=== PATIENT | female | born 1960 | race Caucasian/White ===

== ENCOUNTER → 2016-05-12 | Outpatient (CLI) | payer OTHER ==
[~2016-05-12] MED LIST: ACCUPRIL20 MG PO; BUFFERIN 325 M325 MG PO; CALCIUM + VITA1 EACH PO; CLARITIN10 MG PO; COLACE 100MG C100 MG PO; COMBIVENT0.074 GM/I INH; FERROUS SULFAT325 M2 PO; FOLIC ACID1 MG PO; METHOTREXATE2.5 MG PO; NORCO 5-325 TA1 EACH PO; PREDNISONE10 MG PO; TOPROL XL 50 MG50 MG PO; ZOFRAN4 MG PO; ZYRTEC10 M3 PO
[2016-05-12 11:54] LABS: HEMOGLOBIN 11.9 gm/dl (12.3-15.3); RED BLOOD COUNT 3.98 M/UL (4.00-5.10); WHITE BLOOD COUNT 14.3 K/UL (4.5-11.0)
[2016-05-12 12:04] LABS: BUN/CREATININE RATIO 26 (0-10)
== END ==
LOC: OPSV2 11:00
PROVIDERS: Obstetrics & Gynecology
DX: Z01.812 Encounter for preprocedural laboratory examination (principal); N93.9 Abnormal uterine and vaginal bleeding, unspecified
CPT/HCPCS: 36415; 80048; 81001; 85025; 93005

== ENCOUNTER 2016-05-18 08:51 | Day surgery (SDC) | payer OTHER ==
[2016-05-18] MEDS ORDERED: CLARITIN10 MG PO (10:00)
[2016-05-18] MEDS ORDERED: TOPROL XL 50 MG50 MG PO (10:00)
[2016-05-18] MEDS ORDERED: ZYRTEC10 M3 PO (10:00)
[2016-05-18] MEDS ORDERED: ACCUPRIL20 MG PO (10:01)
[2016-05-18] MEDS ORDERED: PREDNISONE10 MG PO (10:01)
[2016-05-18] MEDS ORDERED: METHOTREXATE2.5 MG PO (10:02)
[2016-05-18] MEDS ORDERED: COMBIVENT0.074 GM/I INH (10:02)
[2016-05-18] MEDS ORDERED: FOLIC ACID1 MG PO (10:03)
[2016-05-18] MEDS ORDERED: FERROUS SULFAT325 M2 PO (10:03)
[2016-05-18] MEDS ORDERED: CALCIUM + VITA1 EACH PO (10:04)
[2016-05-18] MEDS ORDERED: BUFFERIN 325 M325 MG PO (10:04)
[2016-05-18] MEDS ORDERED: ZOFRAN4 MG PO (10:05)
[2016-05-19 03:46] LABS: HEMOGLOBIN 10.7 gm/dl (12.3-15.3)
[2016-05-19] MEDS ORDERED: COLACE 100MG C100 MG PO (10:41)
[2016-05-19] MEDS ORDERED: NORCO 5-325 TA1 EACH PO (10:45)
== END 2016-05-19 11:31 | disposition home or self-care (01) ==
LOC: OR 08:51 → OB 15:37 → OR 05-19 11:31
PROVIDERS: Obstetrics & Gynecology
PROC: 0UTC4ZZ Resection of Cervix, Percutaneous Endoscopic Approach (ICD-10-PCS; 2016-05-18)
PROC: 0UT74ZZ Resection of Bilateral Fallopian Tubes, Percutaneous Endoscopic Approach (ICD-10-PCS; 2016-05-18)
PROC: 0UT94ZZ Resection of Uterus, Percutaneous Endoscopic Approach (ICD-10-PCS; principal; 2016-05-18 12:30)
DX: N72 Inflammatory disease of cervix uteri (principal); D25.1 Intramural leiomyoma of uterus; N80.0 Endometriosis of uterus; N80.2 Endometriosis of fallopian tube; K02.9 Dental caries, unspecified; H53.8 Other visual disturbances; G43.909 Migraine, unspecified, not intractable, without status migrainosus; N13.70 Vesicoureteral-reflux, unspecified; I10 Essential (primary) hypertension; J45.909 Unspecified asthma, uncomplicated; E83.51 Hypocalcemia; M19.90 Unspecified osteoarthritis, unspecified site; G89.29 Other chronic pain; M54.9 Dorsalgia, unspecified; M06.9 Rheumatoid arthritis, unspecified; Z83.3 Family history of diabetes mellitus; Z82.49 Family history of ischemic heart disease and other diseases of the circulatory system; Z79.899 Other long term (current) drug therapy; Z87.19 Personal history of other diseases of the digestive system
CPT/HCPCS: 36415; 85014; 85018; 88342; 94664; J0690; J0694; J1100; J1885; J2250; J2405; J2550; J2710; J2765; J2795; J3010; J7050; J7120